=== PATIENT | female | born 1995 | race Caucasian/White ===

== ENCOUNTER 2016-04-28 20:50 | Emergency (ER) | payer OTHER ==
[~2016-04-28] VITALS: Ht 162.6 cm; Wt 79.5 kg
[2016-04-28 20:51] VITALS: BP 147/90; TEMP 98.7
[2016-04-28 22:00] VITALS: PULSE 97
== END 2016-04-28 22:01 | disposition home or self-care (01) ==
LOC: COL.ER 20:50
DX: S86.211A Strain of muscle(s) and tendon(s) of anterior muscle group at lower leg level, right leg, initial encounter (principal); V43.52XA Car driver injured in collision with other type car in traffic accident, initial encounter; Y92.410 Unspecified street and highway as the place of occurrence of the external cause